=== PATIENT | female | born 1935 | race Caucasian/White ===

== ENCOUNTER 2018-08-05 10:30 | Emergency (ER) | payer OTHER ==
[~2018-08-05] VITALS: Wt 59.6 kg
[2018-08-05 10:34] VITALS: BP 126/67; RESP 18
[2018-08-05] MEDS ORDERED: PRED20TA PO (10:53)
[2018-08-05] MEDS ORDERED: CEPH-443 PO (10:53)
[2018-08-05 11:04] VITALS: PULSE 98
--- NOTE | 2018-08-05 12:48 | ERD ---
ER Documentation Chief Complaint Chief Complaint leg leg rash,blister x 1 week HPI Patient is an 82-year-old female with hypertension who presents with a rash. She has had a rash for the past 2 weeks to her arms and legs. It has been itchy but she had no fever. Left lower leg pain 5 days ago with erythema and tin gling. She has had no treatment as of yet. She has had a previous infection. She says that her primary doctor is in [place]. Upon review of old medical records the patient had one previous visit to the ER in 2006. ROS All systems reviewed and are negative except as per history of present illness. Medications Home Meds Active Scripts Prednisone* (Prednisone*) 20 Mg Tab, 60 MG PO DAILY for 5 Days, TAB Prov:IKER SOLARES MD 08/05/18 Cephalexin* (Keflex*) 500 Mg Capsule, 500 MG PO QID for 7 Days, CAP Prov:IKER SOLARES MD 08/05/18 Allergies Allergies: Coded Allergies: codeine (Verified Allergy, Unknown, 08/05/18) PMhx/Soc History of Surgery: Yes (RIGHT SHOULDER) Anesthesia Reaction: No Hx Neurological Disorder: No Hx Respiratory Disorders: No Hx Cardiac Disorders: No Hx Psychiatric Problems: No Hx Miscellaneous Medical Probl: Yes (GEN BODY RASHES) Hx Alcohol Use: No Hx Substance Use: No Hx Tobacco Use: Yes Smoking Status: Current every day smoker FmHx Family History: diabetes Physical Exam Vitals Vital Signs Date Temp Pulse Resp B/P (MAP) Pulse Ox O2 O2 Flow FiO2 Time Delivery Rate 08/05/18 98 11:04 08/05/18 98.1 110 18 126/67 99 10:34 (86) Physical Exam Const: No acute distress Head: Atraumatic Eyes: Normal Conjunctiva ENT: Normal External Ears, Nose and Mouth. Neck: Full range of motion. No meningismus. Resp: Clear to auscultation bilaterally Cardio: Regular rate and rhythm, no murmurs Abd: Soft, non tender, non distended. Normal bowel sounds Skin: Dry rash to the bilateral upper extremities, there is what appears to be dermatitis with superinfection of the left lower extremity from the knee to the ankle. No abscess seen. Back: No midline or flank tenderness Ext: No cyanosis, or edema Neur: Awake and alert Psych: Normal Mood and Affect Procedures/MDM Patient is an 82-year-old female who presents with what appears to be acute dermatitis with superinfection of the left lower extremity. The patient is otherwise well-appearing without fever. I doubt sepsis and I believe outpatient management is appropriate. The patient will be given Keflex for 7 days and prednisone for 5 days. The patient should follow-up with the primary doctor in 24-48 hours and can return for worsening symptoms. Departure Diagnosis: Primary Impression: Cellulitis Site of cellulitis: extremity Site of cellulitis of extremity: lower extremity Laterality: left Qualified Codes: L03.116 - Cellulitis of left lower limb Additional Impression: Dermatitis Condition: Fair Patient Instructions: Cellulitis, Dermatitis, Non-Specific Referrals: [facility] YOU HAVE RECEIVED A MEDICAL SCREENING EXAM AND THE RESULTS INDICATE THAT YOU DO NOT HAVE A CONDITION THAT REQUIRES URGENT TREATMENT IN THE EMERGENCY DEPARTMENT. FURTHER EVALUATION AND TREATMENT OF YOUR CONDITION CAN WAIT UNTIL YOU ARE SEEN IN YOUR DOCTORS OFFICE WITHIN THE NEXT 1-2 DAYS. IT IS YOUR RESPONSIBILITY TO MAKE AN APPOINTMENT FOR FOLOW-UP CARE. IF YOU HAVE A PRIMARY DOCTOR --you should call your primary doctor and schedule an appointment IF YOU DO NOT HAVE A PRIMARY DOCTOR YOU CAN CALL OUR PHYSICIAN REFERRAL HOTLINE AT IF YOU CAN NOT AFFORD TO SEE A PHYSICIAN YOU CAN CHOSE FROM THE FOLLOWING [facility] [address] [facility]. [facility] [address] [facility] [address] [facility] [address] [facility] [address] [facility]. [facility]. [address] Additional Instructions: Call your primary care doctor TOMORROW for an appointment during the next 1-2 days.See the doctor sooner or return here if your condition worsens before your appointment time. IKER SOLARES MD Aug 05, 2018 12:48
[2018-09-08] MEDS ORDERED: SULF1TAB31 PO (08:17)
[2018-09-08] MEDS ORDERED: BEN50 PO (08:17)
[2018-09-08] MEDS ORDERED: PRED20TA PO (08:17)
== END 2018-08-05 10:52 | disposition home or self-care (01) ==
LOC: E/R 10:30
DX: L03.116 Cellulitis of left lower limb (principal); L30.3 Infective dermatitis; F17.210 Nicotine dependence, cigarettes, uncomplicated; I10 Essential (primary) hypertension
CPT/HCPCS: 99283

== ENCOUNTER 2018-08-21 10:23 | Emergency (ER) | payer OTHER ==
[~2018-08-21] VITALS: Wt 57.1 kg
[~2018-08-21 10:23] MED LIST: CEPH-443 PO; PRED20TA PO
[2018-08-21 10:27] VITALS: BP 142/70; PULSE 108; RESP 17
[2018-08-21] MEDS ORDERED: DIPHENHYDRAMINE 50 MG INJ IV ONE (11:00)
[2018-08-21] MEDS ORDERED: FAMOTIDINE 20 MG INJ IV STA (11:00)
[2018-08-21] MEDS ORDERED: SOD CHLORIDE 0.9% 1,000 ML IV ONE (12:08)
[2018-08-21] MEDS ORDERED: BEN25 PO (12:52)
[2018-08-21] MEDS ORDERED: FEXO180T61 PO (12:52)
--- NOTE | 2018-08-21 12:58 | ERD ---
ER Documentation Chief Complaint Chief Complaint RASH ALL OVER, ONSET SEVERAL DAYS HPI 82-year-old female presents with a rash on extremities from for the last several days. She was treated recently for some stasis dermatitis with possible infection but finished her Keflex prednisone approximately 10 days ago. The rash is itchy patient has fevers, shortness of breath, additional symptoms. Patient has a history of hypertension. ROS All systems reviewed and are negative except as per history of present illness. Medications Home Meds Active Scripts Acetaminophen* (Tylophen*) 500 Mg Capsule, 1 CAP PO Q6H PRN for PAIN AND OR ELEVATED TEMP, #20 CAP Prov:LUCÍA TRINIDAD MD 08/21/18 Diphenhydramine Hcl* (Benadryl*) 25 Mg Cap, 25 MG PO Q6, #15 CAP Prov:LUCÍA TRINIDAD MD 08/21/18 Fexofenadine Hcl* (Ada*) 180 Mg Tablet, 180 MG PO DAILY, #15 TAB Prov:LUCÍA TRINIDAD MD 08/21/18 Prednisone* (Prednisone*) 20 Mg Tab, 60 MG PO DAILY for 5 Days, TAB Prov:IKER SOLARES MD 08/05/18 Cephalexin* (Keflex*) 500 Mg Capsule, 500 MG PO QID for 7 Days, CAP Prov:IKER SOLARES MD 08/05/18 Allergies Allergies: Coded Allergies: codeine (Verified Allergy, Unknown, 08/05/18) PMhx/Soc History of Surgery: No Anesthesia Reaction: No Hx Neurological Disorder: No Hx Respiratory Disorders: No Hx Cardiac Disorders: No Hx Psychiatric Problems: No Hx Miscellaneous Medical Probl: Yes Hx Alcohol Use: No Hx Substance Use: No Hx Tobacco Use: No Smoking Status: Never smoker FmHx Family History: No diabetes, No coronary disease, No other Physical Exam Vitals Vital Signs Date Temp Pulse Resp B/P (MAP) Pulse Ox O2 O2 Flow FiO2 Time Delivery Rate 08/21/18 97.4 108 17 142/70 99 10:27 (94) Physical Exam Const: No acute distress Head: Atraumatic Eyes: Normal Conjunctiva ENT: Normal External Ears, Nose and Mouth. Neck: Full range of motion. No meningismus. Resp: Clear to auscultation bilaterally Cardio: Regular rate and rhythm, no murmurs Abd: Soft, non tender, non distended. Normal bowel sounds Skin: No petechiae or purpura. Blanching diffuse erythematous rash primarily on the extremities but also urticarial type lesions on the abdomen and back. Patient has some venous stasis dermatitis lower extremities which patient states is improved with respect to redness swelling from previous visit. Back: No midline or flank tenderness Ext: No cyanosis, or edema Neur: Awake and alert Psych: Normal Mood and Affect Result Diagram: 08/21/18 1120 08/21/18 1120 Results 24 hrs Laboratory Tests Test 08/21/18 11:20 White Blood Count 9.6 10^3/ul Red Blood Count 4.27 10^6/ul Hemoglobin 12.8 g/dl Hematocrit 39.2 % Mean Corpuscular Volume 91.8 fl Mean Corpuscular Hemoglobin 30.0 pg Mean Corpuscular Hemoglobin Concent 32.7 g/dl Red Cell Distribution Width 13.0 % Platelet Count 213 10^3/UL Mean Platelet Volume 9.9 fl Immature Granulocytes % 0.400 % Neutrophils % 80.3 % Lymphocytes % 8.5 % Monocytes % 6.9 % Eosinophils % 3.7 % Basophils % 0.2 % Nucleated Red Blood Cells % 0.0 /100WBC Immature Granulocytes # 0.040 10^3/ul Neutrophils # 7.7 10^3/ul Lymphocytes # 0.8 10^3/ul Monocytes # 0.7 10^3/ul Eosinophils # 0.4 10^3/ul Basophils # 0.0 10^3/ul Nucleated Red Blood Cells # 0.0 10^3/ul Sodium Level 142 mmol/L Potassium Level 4.4 mmol/L Chloride Level 103 mmol/L Carbon Dioxide Level 26 mmol/L Anion Gap 13 Blood Urea Nitrogen 34 mg/dl Creatinine 1.04 mg/dl Est Glomerular Filtrat Rate mL/min mL/min Glucose Level 109 mg/dl Calcium Level 9.8 mg/dl Total Bilirubin 0.2 mg/dl Direct Bilirubin 0.00 mg/dl Indirect Bilirubin 0.2 mg/dl Aspartate Amino Transf (AST/SGOT) 31 IU/L Alanine Aminotransferase (ALT/SGPT) 27 IU/L Alkaline Phosphatase 90 IU/L Total Protein 7.3 g/dl Albumin 4.3 g/dl Globulin 3.00 g/dl Albumin/Globulin Ratio 1.43 Current Medications Medications Dose Sig/Cedric Start Time Status Last (Trade) Ordered Route PRN Stop Time Admin Dose Reason Admin Famotidine 20 mg ONCE STAT 08/21/18 DC 08/21/18 (Pepcid Iv) IV 11:00 11:26 08/21/18 11:02 25 mg ONCE ONCE 08/21/18 DC 08/21/18 Diphenhydrami IV 11:00 11:26 ne HCl 08/21/18 11:02 (Benadryl) Sodium 1,000 ml @ Q0M ONCE 08/21/18 DC 08/21/18 Chloride 0 mls/hr IV 12:08 12:11 08/21/18 12:10 6 mg ONCE ONCE 08/21/18 UNV Dexamethasone IV 13:00 (Decadron) 08/21/18 13:01 Procedures/MDM Patient presents with a erythematous blanching rash on extremities and trunk. Has a clinical appearance of a drug reaction. Given the duration of symptoms af ter medication IV was obtained. CBC shows no significant acute abnormalities. CMP shows mild renal insufficiency. Patient was given 1 L normal saline IV, Benadryl 25 mg IV, Pepcid 20 mg IV Decadron 6 Milligram IV. Patient was treated with Ada, Benadryl as needed and primary care follow-up for evaluation and ongoing treatment of renal insufficiency and hypertension. She has no signs or symptoms of acute endorgan damage or hypertensive emergency. The patient was stable with no new complaints during the ER course. Clinically, there is no current evidence to suggest meningitis, sepsis, acute abdomen, pneumonia, stroke, acute coronary syndrome, pulmonary embolism, aortic dissection or any other emergent condition appearing to require further evaluation or hospitalization. Patient counseled regarding my diagnostic impression and care plan. Prior to discharge all questions answered. Pt agrees with treatment plan and understands strict return precautions. Pt is instructed to follow up with primary care provider within 24-48 hours. Precautionary instructions provided including instructions to return to the ER if not improving or for any worsening or changing symptoms or concerns. Disclaimer: Inadvertent spelling and grammatical errors are likely due to EHR/dictation software use and do not reflect on the overall quality of patient care. Also, please note that the electronic time recorded on this note does not necessarily reflect the actual time of the patient encounter. Departure Diagnosis: Primary Impression: Renal insufficiency, mild Additional Impression: Rash Condition: Stable Patient Instructions: Dermatitis, Non-Specific, Drug Reaction, Other, Renal Insufficiency Referrals: PHONG MAYERS MD (PCP) Additional Instructions: Labs show renal insufficiency otherwise no acute findings. Suspect drug reaction from previous treatment. Recheck with primary doctor. Recheck for fevers, worsening redness, swelling, new or worsening symptoms. See primary doctor for follow-up of renal insufficiency and hypertension. LUCÍA TRINIDAD MD Aug 21, 2018 12:57
[2018-08-21] MEDS ORDERED: DEXAMETHASONE 10 MG/ML 1 ML INJ IV ONE (13:00)
[2018-08-21] MEDS ORDERED: ACET500C5 PO (13:00)
[2018-09-08] MEDS ORDERED: BEN50 PO (08:17)
[2018-09-08] MEDS ORDERED: SULF1TAB31 PO (08:17)
[2018-09-08] MEDS ORDERED: PRED20TA PO (08:17)
== END 2018-08-21 13:36 | disposition home or self-care (01) ==
LOC: FTE 10:23
DX: N28.9 Disorder of kidney and ureter, unspecified (principal); I10 Essential (primary) hypertension
CPT/HCPCS: 36415; 80053; 85025; 96374; 96375; 99284; J1100; J1200; J7030